=== PATIENT | male | born 2000 ===

== ENCOUNTER 2021-01-31 08:57 | Emergency (ER) | payer OTHER ==
[~2021-01-31] VITALS: Ht 165.1 cm; Wt 80.0 kg
[2021-01-31 09:24] VITALS: TEMP 98.2
[2021-01-31 10:08] LABS: BASO % 0.2 % (0.0-2.0); EOS # 0.1 K/mm3 (0.0-0.7); EOS % 0.9 % (0-4.0); GRAN # 2.2 K/mm3 (1.4-6.5); GRAN % 38.4 % (42.2-75.2); HEMATOCRIT 43.1 % (42.0-52.0); HEMOGLOBIN 14.7 g/dl (13.5-18.0); LYMPH # 2.8 K/mm3 (1.2-3.4); LYMPH % 47.8 % (20.0-51.0); MEAN CELL VOLUME 90 fl (80.0-100.0); MEAN CORPUSCULAR HEMOGLOBIN 31 pg (27.0-31.0); MEAN CORPUSCULAR HGB CONC 34 g/dl (33.0-37.0); MEAN PLATELET VOLUME 8.5 fl (7.4-10.4); MONO # 0.7 K/mm3 (0.1-0.6); MONO % 12.5 % (1.7-9.3); PLATELET COUNT 242 K/mm3 (130-400); RED BLOOD COUNT 4.77 M/mm3 (4.20-5.60); REDCELL DISTRIBUTION WIDTH-CV 11.8 % (11.5-14.5)
[2021-01-31 10:20] LABS: CALCIUM 8.8 mg/dL (8.4-10.2); CREATININE, serum 1.09 mg/dL (0.72-1.25); POTASSIUM 3.9 mmol/L (3.5-4.5)
[2021-01-31] MEDS ORDERED: TAMIFLU 75MG75 MG PO (11:10)
[2021-01-31 11:31] VITALS: BP 119/52; PULSE 87
== END 2021-01-31 11:31 | disposition home or self-care (01) ==
LOC: COL.ER 08:57
PROVIDERS: Emergency Medicine
DX: J10.1 Influenza due to other identified influenza virus with other respiratory manifestations (principal); Z20.822 Contact with and (suspected) exposure to COVID-19
CPT/HCPCS: J1200; J1885; J7030